=== PATIENT | female | born 1960 | race Caucasian/White ===

== ENCOUNTER 2016-07-12 07:48 | Day surgery (SDC) | payer BC, SELFPAY ==
[~2016-07-12] VITALS: Ht 162.6 cm
--- NOTE | 2016-07-14 08:18 | OR ---
ADMIT: 07/12/2016 RM/LOC: [facility] MR#: [id number] [address] RUPERTO WATTS [address] [place] [address] Operative/Delivery Room Report SEX: F AGE: 56 : 1960 SURGERY DATE: 07/12/2016 SURGEON: Annia Cottrell MD HYDRO STATION OPERATOR: None. PREOPERATIVE DIAGNOSES: 1. Lumbar spondylosis. 2. Lumbago. POSTOPERATIVE DIAGNOSES: 1. Lumbar spondylosis. 2. Lumbago. PROCEDURE PERFORMED: Bilateral lumbar medial branch block at L3, L4, L5, and S1 levels. INDICATION FOR THE PROCEDURE: The patient is a pleasant female with history of chronic low back pain secondary to above mentioned diagnoses, come here for planned lumbar medial branch block. ANESTHESIA: Local without sedation. ESTIMATED BLOOD LOSS: Zero. COMPLICATIONS: None immediately evident. DESCRIPTION OF THE PROCEDURE: After the patient was seen in the preoperative area, vital signs were taken. Prior to the procedure, the risks, benefits, and alternative therapies were discussed at length. The patient's consent was obtained and updated. The patient was taken to the fluoroscopy suite and placed on the fluoroscopy table in a prone position. Pressure points were padded to comfort. Monitors were applied and a timeout performed. The lumbosacral area was prepped and draped sterilely using ChloraPrep. C-arm fluoroscopy was then brought in to identify the junction of the pedicular and transverse process. Then lidocaine 1% was applied; approximately 1 mL was used to anesthetize the skin and underlying subcutaneous tissue at bilateral L3, L4, L5 and S1 levels. At each level, a 3.5 inch 22-gauge spinal needle was used. The needle was then advanced to make contact with the superior articular facet at each level, and then needle was placed between the junction ADMIT: 07/12/2016 RM/LOC: [facility] MR#: [id number] [address] RUPERTO WATTS [place] [address] [place] [address] Operative/Delivery Room Report SEX: F AGE: 56 : 1960 of the superior articular facet and the transfer process. Then the patient received 0.5 mL of 0.25% Marcaine with approximately 40 mg of Depo-Medrol at each level. Then we moved on to the left side and repeated the same procedure. The patient tolerated the procedure well. The patient was brought to the PACU where recovered nicely without any complication. PLAN: The patient was examined after 20 minutes and had 30% reduction of pain. Range of motion, mainly extension, went from 10 degrees of extension to 15 degrees of extension. Discharge instructions were given. Followup as scheduled. The patient was discharged with a taxi truck driver. Annia Cottrell MD/ tab JOB #: [id number] CC: Annia Cottrell, Attending Physician Anuja Mackenzie, Family Physician
== END 2016-07-12 09:55 | disposition home or self-care (01) ==
LOC: SSS 07:48
PROC: BR16YZZ Fluoroscopy of Lumbar Facet Joint(s) using Other Contrast (ICD-10-PCS; principal; 2016-07-12)
PROC: 3E0T33Z Introduction of Anti-inflammatory into Peripheral Nerves and Plexi, Percutaneous Approach (ICD-10-PCS; principal; 2016-07-12)
PROC: 3E0T3BZ Introduction of Anesthetic Agent into Peripheral Nerves and Plexi, Percutaneous Approach (ICD-10-PCS; principal; 2016-07-12)
DX: G89.29 Other chronic pain (principal); M47.816 Spondylosis without myelopathy or radiculopathy, lumbar region; M51.37 Other intervertebral disc degeneration, lumbosacral region; Z88.5 Allergy status to narcotic agent; Z88.0 Allergy status to penicillin; Z88.2 Allergy status to sulfonamides; Z88.8 Allergy status to other drugs, medicaments and biological substances; Z79.899 Other long term (current) drug therapy; Z90.710 Acquired absence of both cervix and uterus; Z98.51 Tubal ligation status; Z88.1 Allergy status to other antibiotic agents